=== PATIENT | female | born 1960 | race Caucasian/White ===

== ENCOUNTER 2024-03-13 21:15 | Emergency (ER) | payer MEDICARE, SELFPAY ==
--- NOTE | ~2024-03-13 | XR_ITS ---
EXAMINATION: XR chest 2V DATE: 03/14/2024 00:21 INDICATION: Assess port catheter placement with no blood return TECHNIQUE: PA and lateral views of the chest were obtained. COMPARISON: None FINDINGS: Right internal jugular central venous port catheter with distal tip near the superior cavoatrial junc tion. Mild linear discoid atelectasis in the left lower lung zone. No other airspace opacities, pulmonary e rolo, pleural effusion or pneumothorax. The cardiomediastinal silhouette is normal. Postoperative panchito nges at the epigastric region. IMPRESSION: 1. Mild left basilar discoid atelectasis. Reviewed, dictated and finalized at location A.
[2024-03-13 21:18] VITALS: BP 140/53; PULSE 78; RESP 15; TEMP 36.9; O2SAT 100
[2024-03-14 01:15] VITALS: BP 127/82; PULSE 63; RESP 15; O2SAT 98
--- NOTE | 2024-03-14 01:26 | ED.GENADULT ---
HPI - General Adult General Chief complaint: Recheck/Abnormal Lab/Rx Stated complaint: port not flushing Time Seen by Provider: 03/14/24 00:16 History of Present Illness HPI narrative: Patient is 63-year-old female presents emergency department with chief complaint of her port will not draw blood. The patient reports she receives TPN through a port in her right chest. The patient states the port was accessed earlier this week in which she is to get her infusion and then the axis report it will be react cyst in the clinic. Patient states that normally is able to draw blood but has not been able dry she has tried flushing it without success. Related Data Allergies Allergy/AdvReac Type Severity Reaction Status Date / Time No Known Allergies Allergy Verified 03/13/24 21:17 Review of Systems Review of Systems: A 10 system review of systems was completed on the patient and is negative except for what is stated in the HPI. Nursing and ancillary documentation was reviewed. Exam Narrative: GENERAL: Well-appearing, well-nourished, and in no acute distress. HEAD: Normocephalic, atraumatic. EYES: PERRLA and EOMI. ENT: Nares clear, no rhinorrhea or epistaxis. Mucous membranes moist. NECK: Supple. CHEST: Clear to auscultation. No respiratory distress. Port-A-Cath present in the right chest wall HEART: Regular rate and rhythm. No murmur heard. Normal peripheral pulses. ABDOMEN: Soft, nontender, nondistended, normal active bowel sounds. EXTREMITIES: Normal range of motion. No edema. SKIN: Warm, dry, no rash. NEURO: No focal deficits. Alert and oriented x3. PSYCH: Normal mood and affect. Course Vital Signs Vital signs: Vital Signs Temperature 36.9 C 03/13/24 21:18 Pulse Rate 78 03/13/24 21:18 Respiratory Rate 15 03/13/24 21:18 Blood Pressure 140/53 L 03/13/24 21:18 Pulse Oximetry 100 03/13/24 21:18 Temperature 36.9 C 03/13/24 21:18 Pulse Rate 78 03/13/24 21:18 Respiratory Rate 15 03/13/24 21:18 Blood Pressure 140/53 L 03/13/24 21:18 Pulse Oximetry 100 03/13/24 21:18 Medical Decision Making [facility] Narrative Medical decision making narrative: Differential diagnosis includes thrombosis report, displacement of Kyle needle, The port was de accessed and reaccessed without success of blood draw but still flushes good cath fluids ordered for the port chest x-ray did verify that the port is in place Patient was given Cathflo and there was a small amount of blood able to be aspirated but not good aspiration. The port is flushed a bowl and flows well without difficulty In discussion with the patient she did not want to do the 2nd dose of Cathflo and reports that she would like to follow-up with her doctors as she has a [address] back home Vital Signs Vital Signs: Vital Signs Temperature 36.9 C 03/13/24 21:18 Pulse Rate 78 03/13/24 21:18 Respiratory Rate 15 03/13/24 21:18 Blood Pressure 140/53 L 03/13/24 21:18 Pulse Oximetry 100 03/13/24 21:18 Temperature 36.9 C 03/13/24 21:18 Pulse Rate 78 03/13/24 21:18 Respiratory Rate 15 03/13/24 21:18 Blood Pressure 140/53 L 03/13/24 21:18 Pulse Oximetry 100 03/13/24 21:18 Discharge Plan Discharge Clinical Impression: Other mechanical complication of infusion catheter, initial encounter Patient Disposition: Home, Self-Care Condition: Stable Instructions: Antibiotic Form, How to Care for Your Implanted Venous Access Port (DC) Additional Instructions: Please follow-up with your provider that manages your port Follow-up/Referrals: UNKNOWN,DOCTOR [Primary Care Provider] - Time of Disposition: 02:59
[2024-03-14] MEDS: ALTEPLASE 2 MG VIAL (CATHFLO) IV PUSH (02:10)
[2024-03-14 03:26] VITALS: BP 124/76; PULSE 70; RESP 15; O2SAT 97
== END 2024-03-14 03:28 | disposition home or self-care (01) ==
PROVIDERS: Emergency Provider Emergency Medicine
DX: T82.898A Other specified complication of vascular prosthetic devices, implants and grafts, initial encounter (principal)
CPT/HCPCS: 71046; 96374; 99284; J2997